=== PATIENT | female | born 1995 | race Hispanic/Latino ===

== ENCOUNTER 2019-06-03 05:41 | Emergency (ER) | payer MEDICAID, OTHER ==
[2019-06-03] MEDS ORDERED: ACETAMINOPHEN EXTRA STRENGTH 500 MG TABLET ONE (06:04)
[2019-06-03 06:08] LABS: APPEARANCE,URINE Clear (CLEAR); BILIRUBIN,URINE Negative (NEGATIVE); COLOR,URINE Yellow (YELLOW); GLUCOSE, URINE (UA) Negative (NEGATIVE); HCG,QUAL RESULT NEGATIVE (NEGATIVE); KETONES,URINE Negative (NEGATIVE); LEUKOCYTE ESTERASE ,URINE Negative (NEGATIVE); NITRATE,URINE Negative (NEGATIVE); OCCULT BLOOD,URINE Negative (NEGATIVE); PH,URINE 5.5 (5.0-8.0); PROTEIN,URINE Negative (NEGATIVE)
[2019-06-03 06:31] LABS: RAPID GROUP A STREP NEGATIVE (NEGATIVE)
== END 2019-06-03 07:38 | disposition home or self-care (01) ==
LOC: EDH 05:41
DX: R50.9 Fever, unspecified (principal)
CPT/HCPCS: 81003; 81025; 87804; 87880

== ENCOUNTER 2021-07-21 05:56 | Observation (INO) | payer MEDICAID ==
[~2021-07-21] VITALS: Ht 152.4 cm; Wt 75.8 kg
[2021-07-21 05:57] VITALS: BP 106/53
[2021-07-21 06:42] LABS: APPEARANCE,URINE Clear (CLEAR); BILIRUBIN,URINE Negative (NEGATIVE); COLOR,URINE Dark Yellow (YELLOW); GLUCOSE, URINE (UA) Negative (NEGATIVE); KETONES,URINE 15 mg/dL (NEGATIVE); LEUKOCYTE ESTERASE ,URINE Small (NEGATIVE); NITRATE,URINE Negative (NEGATIVE); OCCULT BLOOD,URINE Negative (NEGATIVE); PH,URINE 5.5 (5.0-8.0); PROTEIN,URINE Trace mg/dL (NEGATIVE)
[2021-07-21 06:49] LABS: AMPHET/METH SCREEN,URINE NEGATIVE (NEGATIVE); BARBITURATE SCREEN, URINE NEGATIVE (NEGATIVE); BENZODIAZEPINES SCREEN,URINE NEGATIVE (NEGATIVE); CANNABINOID SCREEN,URINE NEGATIVE (NEGATIVE); COCAINE SCREEN,URINE NEGATIVE (NEGATIVE); OPIATE SCREEN,URINE NEGATIVE (NEGATIVE); PHENCYCLIDINE SCREEN,URINE NEGATIVE (NEGATIVE)
[2021-07-21] MEDS ORDERED: LACTATED RINGERS 1000ML 1,000 ML IV ONE (07:12)
[2021-07-21 07:24] LABS: RBC,URINE 0-1 /HPF (0-1)
[2021-07-21 07:25] LABS: BACTERIA,URINE Moderate /HPF (None Seen); SQUAMOUS EPITHELIAL CELL,UR Few /HPF (0-2)
[2021-07-21] MEDS ORDERED: ACETAMINOPHEN WITH CODEINE 1 TAB TAB PO SCH (07:30)
[2021-07-21] MEDS ORDERED: LACTATED RINGERS 1000ML 1,000 ML IV SCH (07:30)
== END 2021-07-21 08:30 | disposition home or self-care (01) ==
LOC: EDH 05:56 → LDH 06:08
PROVIDERS: ADMIT Obstetrics & Gynecology; ATTEND Obstetrics & Gynecology
DX: O99.891 Other specified diseases and conditions complicating pregnancy (principal); M54.50 Low back pain, unspecified; O62.9 Abnormality of forces of labor, unspecified; O26.893 Other specified pregnancy related conditions, third trimester; M79.662 Pain in left lower leg; Z3A.38 38 weeks gestation of pregnancy; Z79.899 Other long term (current) drug therapy
CPT/HCPCS: 59025; 80305; 81001; 87088; 96360; G0378 ×2; G0379; J7120 ×2

== ENCOUNTER 2023-03-31 20:52 | Emergency (ER) | payer BC, MEDICAID ==
[~2023-03-31] VITALS: Ht 152.4 cm; Wt 78.9 kg
[2023-03-31 21:09] VITALS: BP 125/68
[2023-03-31 21:22] LABS: APPEARANCE,URINE CLOUDY (CLEAR); BILIRUBIN,URINE NEGATIVE (NEGATIVE); COLOR,URINE YELLOW (YELLOW); GLUCOSE, URINE (UA) NEGATIVE (NEGATIVE); KETONES,URINE NEGATIVE (NEGATIVE); LEUKOCYTE ESTERASE ,URINE 500 Leu/uL (NEGATIVE); NITRATE,URINE NEGATIVE (NEGATIVE); OCCULT BLOOD,URINE LARGE (NEGATIVE); PH,URINE 6.5 (5.0-8.0); PROTEIN,URINE 70 mg/dL (NEGATIVE); UROBILINOGEN,URINE 0.2 mg/dL (0.2-1.0)
[2023-03-31 21:27] LABS: BACTERIA,URINE RARE /HPF (None Seen); MUCUS,URINE RARE LPF (None Seen); RBC,URINE 51-100 /HPF (0-1); SQUAMOUS EPITHELIAL CELL,UR FEW /HPF (0-2); WBC,URINE >100 /HPF (0-1); YEAST,URINE BUDDING MOD /HPF (None Seen)
[2023-03-31] MEDS ORDERED: CEFTRIAXONE 1G VIAL IM SCH (22:00)
[2023-03-31] MEDS ORDERED: IBUPROFEN 600 MG TABLET PO SCH (22:00)
[2023-03-31] MEDS ORDERED: HYDROCODONE/ACETAMINOPHEN 5/325 MG TAB PO SCH (22:00)
[2023-03-31] MEDS ORDERED: IBUPROFEN 600 MG TABLET ONE (22:08)
[2023-03-31] MEDS ORDERED: HYDROCODONE/ACETAMINOPHEN 5/325 MG TAB ONE (22:08)
[2023-03-31] MEDS ORDERED: CEFTRIAXONE 1G VIAL ONE (22:08)
== END 2023-03-31 22:44 | disposition home or self-care (01) ==
LOC: EDH 20:52
DX: N39.0 Urinary tract infection, site not specified (principal)
CPT/HCPCS: 99284; 87077; 87088; 87186; 81001; 96372; J0696

== ENCOUNTER 2023-12-29 11:26 | Emergency (ER) | payer BC, MEDICAID ==
[~2023-12-29] VITALS: Ht 152.4 cm; Wt 74.4 kg
[2023-12-29] MEDS: ACETAMINOPHEN 500 MG TABLET PO ONE (15:02)
[2023-12-29 15:04] LABS: APPEARANCE,URINE CLOUDY (CLEAR); BILIRUBIN,URINE NEGATIVE (NEGATIVE); COLOR,URINE YELLOW (YELLOW); GLUCOSE, URINE (UA) NEGATIVE (NEGATIVE); KETONES,URINE NEGATIVE (NEGATIVE); LEUKOCYTE ESTERASE ,URINE NEGATIVE Leu/uL (NEGATIVE); NITRATE,URINE 2+ (NEGATIVE); OCCULT BLOOD,URINE NEGATIVE (NEGATIVE); PH,URINE 5.5 (5.0-8.0); PROTEIN,URINE 10 mg/dL (NEGATIVE); UROBILINOGEN,URINE 0.2 mg/dL (0.2-1.0)
[2023-12-29 15:05] LABS: HCG,QUALITATIVE URINE NEGATIVE (NEGATIVE)
[2023-12-29 15:07] LABS: ADD UA MICROSCOPIC YES
[2023-12-29 15:18] LABS: BACTERIA,URINE MOD /HPF (None Seen); MUCUS,URINE RARE LPF (None Seen); SQUAMOUS EPITHELIAL CELL,UR RARE /HPF (0-2); WBC,URINE 0-1 /HPF (0-1)
[2023-12-29] MEDS ORDERED: SULF1TAB42 PO (15:55)
[2023-12-29 16:01] VITALS: BP 131/72; PULSE 78; RESP 18; O2SAT 100
== END 2023-12-29 16:28 | disposition home or self-care (01) ==
LOC: EDH 11:26
DX: M54.50 Low back pain, unspecified (principal)
CPT/HCPCS: 81001; 81025; 87077; 87088; 87186